=== PATIENT | female | born 1990 | race Caucasian/White ===

== ENCOUNTER 2024-02-17 09:38 | Emergency (ER) | payer BC ==
[~2024-02-17] VITALS: Ht 162.5 cm; Wt 83.9 kg
[2024-02-17] MEDS ORDERED: SODIUM CHLORIDE 0.9% 1,000 ML IV ONE (09:50)
[2024-02-17] MEDS ORDERED: Metoclopramide Hydrochloride 10 MG/2 ML AMP IV ONE (09:50)
[2024-02-17] MEDS ORDERED: diphenhydrAMINE hydrochloride 50 MG/ML VIAL IV ONE (09:50)
[2024-02-17 10:13] LABS: BASO # 0.1 10*3/uL (0.0-0.1); BASO % 0.6 % (0.0-1.0); EOS # 0.1 10*3/uL (0.0-0.4); EOS % 0.6 % (1.0-4.0); HEMATOCRIT 39.5 % (37.0-47.0); LYMPH % 17.7 % (27.0-41.0); MEAN CELL VOLUME 90.6 fl (81.0-99.0); MEAN CORPUSCULAR HGB 29.8 pg (27.0-31.0); MEAN CORPUSCULAR HGB CONC 32.9 g/dl (33.0-37.0); MEAN PLATELET VOLUME 9.5 fl (9.6-12.3); MONO # 0.6 10*3/uL (0.1-1.0); MONO % 5.8 % (3.0-9.0); NEUT # 8.3 10*3/uL (2.3-7.9); PLATELET COUNT AUTOMATED 400 10*3/uL (130-400); RED BLOOD COUNT 4.36 10*6/uL (4.10-5.10); RED CELL DISTRI WIDTH 12.2 % (0-14.5); WHITE BLOOD COUNT 11.1 10*3/uL (4.8-10.8)
[2024-02-17 10:24] LABS: BILIRUBIN Negative (Negative); BLOOD Negative (Negative); CLARITY Clear (Clear); COLOR Yellow (Yellow); GLUCOSE Negative (Negative); KETONE Negative (Negative); LEUKO ESTERASE Negative (Negative); NITRITE Negative (Negative); PH 6.5 (4.5-8.0); UROBILINOGEN 0.2 E.U./dl (0.0-1.0)
[2024-02-17 10:31] LABS: URINE AMPHETAMINES Negative (1000ng/ml); URINE BARBITURATES Negative (200ng/ml); URINE BENZODIAZEPINES Negative (200ng/ml); URINE CANNABINOIDS (THC) Positive (50ng/ml); URINE COCAINE Negative (300ng/ml); URINE METHADONE Negative (300ng/ml); URINE OPIATES Negative (300ng/ml); URINE PHENCYCLIDINE Negative (25ng/ml)
[2024-02-17 10:35] LABS: BUN 9 mg/dl (9-23); CHLORIDE 108 mmol/L (98-107); CPK 189 U/L (34-171); POTASSIUM 3.5 mmol/L (3.4-5.1)
[2024-02-17 10:37] LABS: BACTERIA TRACE; RBC 0-2 rbc/hpf (0-2)
[2024-02-17 10:38] LABS: B-hCG (QUALITATIVE) NEGATIVE (NEGATIVE); ETHYL ALCOHOL < 3.0 mg/dl (<3)
== END 2024-02-17 17:15 | disposition short-term general hospital (02) ==
LOC: ED 09:38
PROVIDERS: Emergency Medicine
DX: F30.9 Manic episode, unspecified (principal); R11.2 Nausea with vomiting, unspecified; F90.9 Attention-deficit hyperactivity disorder, unspecified type; Z91.040 Latex allergy status; Z88.8 Allergy status to other drugs, medicaments and biological substances; Z91.018 Allergy to other foods

== ENCOUNTER 2024-03-03 05:57 | Emergency (ER) | payer BC ==
[~2024-03-03] VITALS: Ht 167.6 cm; Wt 99.8 kg
[2024-03-03 06:17] LABS: BASO # 0.1 10*3/uL (0.0-0.1); EOS # 0.2 10*3/uL (0.0-0.4); EOS % 1.5 % (1.0-4.0); HEMATOCRIT 41.5 % (37.0-47.0); LYMPH # 3.2 10*3/uL (1.3-4.4); LYMPH % 25.7 % (27.0-41.0); MEAN CORPUSCULAR HGB 29.7 pg (27.0-31.0); MEAN CORPUSCULAR HGB CONC 32.3 g/dl (33.0-37.0); MEAN PLATELET VOLUME 9.5 fl (9.6-12.3); MONO # 0.9 10*3/uL (0.1-1.0); MONO % 7.2 % (3.0-9.0); NEUT % 64.3 % (47.0-73.0); PLATELET COUNT AUTOMATED 359 10*3/uL (130-400); RED BLOOD COUNT 4.51 10*6/uL (4.10-5.10); RED CELL DISTRI WIDTH 12.1 % (0-14.5); WHITE BLOOD COUNT 12.4 10*3/uL (4.8-10.8)
[2024-03-03] MEDS ORDERED: RISPERDAL1 M1 PO (06:17)
[2024-03-03] MEDS ORDERED: TRAZODONE100 MG PO (06:18)
[2024-03-03] MEDS ORDERED: TRILEPTAL300 MG PO (06:18)
[2024-03-03] MEDS ORDERED: TYLENOL325 M1 PO (06:19)
[2024-03-03 06:20] LABS: BILIRUBIN Negative (Negative); BLOOD Negative (Negative); CLARITY Clear (Clear); COLOR Yellow (Yellow); GLUCOSE Negative (Negative); KETONE Negative (Negative); LEUKO ESTERASE Negative (Negative); NITRITE Negative (Negative); PH 7.5 (4.5-8.0); SPECIFIC GRAVITY <= 1.005 (1.001-1.030); UROBILINOGEN 0.2 E.U./dl (0.0-1.0)
[2024-03-03 06:26] LABS: URINE AMPHETAMINES Negative (1000ng/ml); URINE BARBITURATES Negative (200ng/ml); URINE BENZODIAZEPINES Negative (200ng/ml); URINE CANNABINOIDS (THC) Positive (50ng/ml); URINE COCAINE Negative (300ng/ml); URINE METHADONE Negative (300ng/ml); URINE OPIATES Negative (300ng/ml); URINE PHENCYCLIDINE Negative (25ng/ml)
[2024-03-03 06:37] LABS: ALKALINE PHOSPHATASE 79 U/L (46-116); BUN 8 mg/dl (9-23); CHLORIDE 105 mmol/L (98-107); POTASSIUM 3.7 mmol/L (3.4-5.1); SGPT/ALT 22 U/L (5-49); TOTAL PROTEIN 7.3 gm/dL (6.0-8.0)
[2024-03-03 06:47] LABS: EPITHELIAL CELLS 0-2
[2024-03-03 06:48] LABS: ETHYL ALCOHOL < 3.0 mg/dl (<3)
[2024-03-03] MEDS ORDERED: OXcarbazepine 150 MG TAB PO SCH (09:20)
[2024-03-03] MEDS ORDERED: OXcarbazepine 150 MG TAB PO ONE (09:25)
[2024-03-03] MEDS ORDERED: Midazolam Hydrochloride 5 MG/ML VIAL INH PRN (12:50)
== END 2024-03-03 22:05 ==
LOC: ED 05:57
PROVIDERS: Internal Medicine
DX: F31.9 Bipolar disorder, unspecified (principal); F90.9 Attention-deficit hyperactivity disorder, unspecified type; Z91.040 Latex allergy status; Z88.8 Allergy status to other drugs, medicaments and biological substances; Z91.018 Allergy to other foods